=== PATIENT | female | born 1945 | race Caucasian/White ===

== ENCOUNTER → 2024-03-02 | Outpatient (CLI) | payer MEDICARE, SELFPAY ==
[2024-03-02] VITALS (25 sets, daily range): BP systolic 128–163; BP diastolic 72–103; PULSE 58–76; RESP 12–17; TEMP 36.4; O2SAT 94–100; BMI 24.8
--- NOTE | 2024-03-02 | ASPIGT_PTH ---
PATIENT: GLADIS TOMLIN LOC: CT U#:[id number] AGE/SX: 78/F ROOM: RE03/02/[address]: Dr. Vinod Youssef MD : 1945 BED: DIS: 03/02/2024 SPEC #: [id number] RECD: 03/02/24 11:09 STATUS: [facility] #: [id number] MOSES: 03/02/24 00:[address]: Vinod Youssef DEPT: SURGICAL PATHOLOGY RECD BY: Aliyah Escobar Tissues: Liver, NOS Procedures: FNA Specimen Adequacy Special Stain Group II Surgery Specimen Level IV Surgery Specimen Level V Imprint (control) HEADER OPERATION: Liver biopsy PRE-OP DIAGNOSIS: Mass TISSUE SUBMITTED: 18 gauge x5 cores MICROSCOPIC DIAGNOSIS Liver mass, CT guided core biopsy: Liver biopsy showing prominent fibrotic tissue (60%) and unremarkable hepatocytes (40%). Negative for malignancy. See comment. SJ. 03/12/2024 COMMENT The specimen is evaluated at the time of biopsy by Dr. Covarrubias. Immediate Evaluation = Negative for malignant cells. Reported to Lynne at 10:55am on 03/02/2024. The specimen is sent to [facility] for expert opinion, reviewed by Dr. Cortez and the above diagnosis is rendered. The complete report is viewable in the patient's EMR. Correlation with clinical, radiologic findings and appropriate follow up are necessary. This case has been reviewed in consultation with Dr. Peace who concurs with the above diagnosis. IDC:PW MICROSCOPIC DESCRIPTION Slides are reviewed. GROSS DESCRIPTION Received in fixative is one container labeled with the patient's name and designated Liver biopsy. The specimen consists of multiple irregular fragments of light branham soft tissue that in aggregate measure 1.0 x 0.2 x 0.1 cm. The specimen is totally submitted in one cassette. Two touch imprints are prepared at the time of core biopsy. 03/02/2024 TC:5 CPT:36892,02430
--- NOTE | 2024-03-02 | FLU_PTH ---
PATIENT: GLADIS TOMLIN LOC: CT U#:[id number] AGE/SX: 78/F ROOM: RE03/02/[address]: Dr. Vinod Youssef MD : 1945 BED: DIS: 03/02/2024 SPEC #: [id number] RECD: 03/02/24 10:00 STATUS: [facility] #: [id number] MOSES: 03/02/24 00:[address]: Vinod Youssef DEPT: CYTOLOGY RECD BY: Aliyah Escobar Tissues: Liver, NOS Procedures: Special Stain Group II Surgery Specimen Level IV Surgery Specimen Level V Cytospin Fluid HEADER OPERATION: Liver biopsy PRE-OP DIAGNOSIS: Liver mass, hepatomegaly TISSUE SUBMITTED: 18 gauge x 5 cores DIAGNOSIS CYTOLOGY Liver mass, biopsy: Negative for malignant cells. See comment. 03/05/2024 COMMENT The specimen is evaluated at the time of biopsy by Dr. Covarrubias. Immediate Evaluation = Paucicellular specimen. Negative for malignant cells. Reported to Farshad Lynne at 9:45am on 03/02/2024. A few red blood cells are noted. No obvious tissue is noted in the specimen. CYTOLOGY STUDY Slides are reviewed. CYTOLOGY GROSS Received in fixative is one container labeled with the patient's name and designated Liver biopsy. The specimen consists of a scant amount of soft tissue. The specimen is totally submitted for cell block preparation. Mr 03/02/2024 TC:5 CPT:12011,83968,73532
[2024-03-02 08:28] LABS: Absolute Lymphocyte Count 1.58 X10^3/uL (0.83-4.51); Absolute Neutrophil Count 4.5 X10^3/uL (2.0-7.7); Basophil# 0.07 X10^3/uL; Eosinophil# 0.19 X10^3/uL; Eosinophils% 2.7 % (0-5); Hematocrit 47.2 % (37-47); Lymphocyte # 1.58 X10^3/ul (0.83-4.51); Lymphocyte % 22.7 % (19-41); Mean Corp Hgb Conc 31.8 g/dL (32-36); Mean Corpuscular Hgb 30.7 pg (27.0-32.0); Mean Corpuscular Volume 96.7 fL (81-99); Mean Platelet Vol. 9.6 fl (6.2-12.0); Monocyte# 0.61 X10^3/uL; Monocyte% 8.8 % (0-10); NRBC Flagged by Analyzer 0 % (0-5); Neutrophil # 4.49 X10^3/uL (2.7-7.7); Neutrophil % 64.4 % (47-70); Platelet Count 215 K/mm3 (150-450); RBC Distribution Width CV 13.5 % (11.6-14.6); RBC Distribution Width SD 48.3 fl (35.1-43.9); Red Blood Count 4.88 M/mm3 (4.2-5.4)
[2024-03-02] MEDS: Midazolam 2 MG/2 ML Syringe IV ×4 (09:17→10:30)
[2024-03-02] MEDS: fentaNYL 100 MCG/2 ML Ampul IV ×2 (09:18→10:21)
[2024-03-02 09:27] LABS: Partial Thromboplast Time 30.7 Seconds (24.1-36.2); Prothrombin Time (Protime)PT. 13.2 SECONDS (11.7-14.9)
[2024-03-02] MEDS: Lidocaine 2% (20 ml mdv) 20 ML Vial INFILT (09:29)
--- NOTE | 2024-03-02 09:40 | PCM.OPRPT ---
Problems Associated Problem List Diagnoses (1) Liver cyst: Multi Select Codes Radiology Radiology CT Procedures: 56128 Biopsy Liver [place] [address]-11 CT guidance parenchymal tissue Operative Report (Standard) Operative Information Date of Procedure: 03/02/24 Pre-Operative Diagnosis: Liver mass Post-Operative Diagnosis: Liver cyst Surgery/Procedure Performed: CT-guided liver biopsy manager compliance: No Type of Anesthesia: IV Sedation and Local Procedure Start Time: 09:17 Procedure Stop Time: 09:35 Select all DRAINS/GRAFTS/IMPLANTS that apply: None Estimated Blood Loss: 0 Specimen collected: Yes Description of specimen(s) removed: 5 core biopsies attempted, mostly fluid Description of surgery: PROCEDURE: CT DIRECTED CORE LIVER BIOPSY ORDERING PROVIDER: Dr. Youssef INDICATION: Female, 78 years old. Liver mass. PROVIDER: Lynne Street CNP CONSENT: Written informed consent was obtained having explained the risks, benefits and alternatives in detail with the patient who accepted the risks and agreed to proceed. Laboratory review and clinical assessment was performed. PRE-PROCEDURE SEDATION ASSESSMENT: Current history and physical dictated by referring provider and reviewed. No clinical changes since date of exam. Patient has a Mallampati Score of Class 2 and ASA Class of 2. PROCEDURAL SEDATION PROTOCOL: The Drugs used were: 2 mg Versed, IV, and 50 mcg Fentanyl, IV. The sedation time was: starting at 9:17 AM and terminated at 9:35 AM. The procedural sedation protocol was independently monitored by the department nurse. RADIATION DOSAGE (If Supplied By Facility): CTDIvol = 19.26 mGy, DLP = 377.05 mGycm Individualized dose optimization techniques were used for this CT. TECHNIQUE The patient was placed in a supine position. Using CT image guidance with image documentation, a suitable location in the right lobe of the liver was identified. The skin surface was prepped with chlorhexidine and draped in a sterile fashion. 2% lidocaine was used for local anesthesia. Using an anterior approach, puncture of the liver was uneventful with an 18-gauge core needle system. 5, 18-gauge core samples were obtained, and submitted in formalin to the pathologist for further assessment. The needle was removed. An occlusive sterile dressing was applied. Patient tolerated the procedure well, and returned to the holding bay for nursing monitoring. IMPRESSION: CT directed core needle biopsy of the liver, using CT image guidance with image documentation as described. Procedural Sedation protocol utilized with independent monitoring. Surgical Findings: Very little tissue was able to be obtained, mostly fluid. Complications Complications: No
== END | disposition home or self-care (01) ==
PROVIDERS: PCP Family Medicine; Referring Provider Family Medicine; Visit Provider Family Medicine
DX: Z01.812 Encounter for preprocedural laboratory examination (principal); K76.89 Other specified diseases of liver
CPT/HCPCS: 47000; 36415; 77012; 85025; 85610; 85730; 87070; 87075; 87205; 88108; 88172; 88305; 88307; 88313; 99156; A4216